=== PATIENT | female | born 1945 | race Two or more races ===

== ENCOUNTER 2017-05-01 07:27 | Day surgery (SDC) | payer MEDICARE ==
[2017-05-01] MEDS ORDERED: Lactated Ringer's 1,000 ML IV ONE (08:35)
[2017-05-01 08:41] VITALS: BP 115/65
[2017-05-01] MEDS ORDERED: Lidocaine 2% MPF (5 ml) Inj ONE (09:28)
[2017-05-01] MEDS ORDERED: Propofol 10 mg/ml Inj (20 ML) ONE (09:28)
[2017-05-01 10:23] VITALS: PULSE 66; RESP 21; TEMP 95.5; O2SAT 99
== END 2017-05-01 11:38 | disposition home or self-care (01) ==
LOC: H.ENDO 07:27
PROVIDERS: ATTEND Internal Medicine Gastroenterology
DX: D12.6 Benign neoplasm of colon, unspecified (principal); R19.5 Other fecal abnormalities; K64.8 Other hemorrhoids
CPT/HCPCS: 45390; 88305; J2704; J7120